=== PATIENT | female | born 1970 | race Caucasian/White ===

== ENCOUNTER 2018-03-30 08:38 | Emergency (ER) | payer OTHER ==
[2018-03-30 08:40] VITALS: BMI 32.1
[2018-03-30 08:42] VITALS: BP 128/80; PULSE 68; RESP 16; TEMP 98.2; O2SAT 98
--- NOTE | 2018-03-30 09:28 | ED PDOC ---
HPI: Female Pain Time Seen by Provider: 03/30/18 08:58 Chief Complaint (Nursing): Female Genitourinary Chief Complaint (Provider): Female Genitourinary History Per: Patient History/Exam Limitations: no limitations Onset/Duration Of Symptoms: Days (3) Current Symptoms Are (Timing): Still Present Additional Complaint(s): 47 years old female with history of anemia presents to the ED for evaluation of mild abdominal pain and vaginal bleeding associated with pain radiation down her left leg onset 3 days. Patient reports using 5 pads yesterday and she is on the second pad for today. She states it is not her period time. Patient reports trying to reach her OB[employer] SUPERVISOR, Dr. Sahil Tipton, but his office does not open until 12pm. She admits taking Advil with minimal relief. Patient reports having ablation of uterus before which made her period kiln hand. She denies any allergies. LMP: March 09, 2018 PMD:Willy Winkler Past Medical History Reviewed: Historical Data, Nursing Documentation, Vital Signs Vital Signs: Last Vital Signs Temp 98.2 F 03/30/18 08:40 Pulse 68 03/30/18 08:40 Resp 16 03/30/18 08:40 BP 128/80 03/30/18 08:40 Pulse Ox 98 03/30/18 08:40 - Medical History PMH: Anemia, Hypothyroidism - Surgical History Surgical History: (2) - Family History Family History: States: Unknown Family Hx - Social History Current smoker - smoking cessation education provided: No Alcohol: Social Drugs: Denies - Home Medications Home Medications: Ambulatory Orders Medication Instructions Recorded Naproxen [Naprosyn] 500 mg PO BID PRN #15 tablet 03/30/18 - Allergies Allergies/Adverse Reactions: Allergies Allergy/AdvReac Type Severity Reaction Status Date / Time No Known Allergies Allergy Verified 03/30/18 08:48 Review of Systems ROS Statement: Except As Marked, All Systems Reviewed And Found Negative Gastrointestinal: Positive for: Abdominal Pain (left lower quadrant) Genitourinary Female: Positive for: Vaginal Bleeding Physical Exam - Reviewed Nursing Documentation Reviewed: Yes Vital Signs Reviewed: Yes - Physical Exam Appears: Positive for: Non-toxic, No Acute Distress Skin: Positive for: Normal Color, Warm, Dry Gastrointestinal/Abdominal: Positive for: Tenderness (LLQ) Neurologic/Psych: Positive for: Alert, Oriented - Laboratory Results Result Diagrams: 03/30/18 09:32 03/30/18 09:32 - ECG O2 Sat by Pulse Oximetry: 98 (RA) Pulse Ox Interpretation: Normal Medical Decision Making Medical Decision Making: Time: 902 Initial Impression: irregular vaginal bleeding, LLQ pain Initial Plan: --Urine dipstick --Urine --Type and Screen --CMP --CBC --PTT --PT --Urinalysis --Pelvis/Transvaginal/Abdomen US 1141 Pelvis/Transvaginal/Abdomen US FINDINGS: UTERUS: Measures 11.5 x 6.0 x 5.7 cm. Anteverted an enlarged. There is heterogeneous myometrial echotexture. There is a 1.9 x 2.5 x 2.2 cm intramural posterior fundal fibroid in the midbody of the uterus. ENDOMETRIUM: Measures 6.0 mm in diameter. Unremarkable. CERVIX: No cervical abnormality identified. RIGHT OVARY: Measures 3.7 x 3.3 x 2.4 cm. No solid mass. Normal flow. There is a 1.6 x 0.9 x 1.7 cm simple cyst/ dominant follicle LEFT OVARY: Measures 2.7 x 2.4 x 1.5 cm. No solid mass. Normal flow. There is a 3.9 x 4.0 x 3.7 cm para ovarian cyst. FREE FLUID: No significant free fluid noted. OTHER FINDINGS: None. IMPRESSION: 1. Enlarged anteverted heterogeneous uterus with a dominant 1.9 x 2.5 x 2.2 cm posterior wall intramural fibroid in the midbody of the uterus. 2. 3.9 x 4.0 x 3.7 cm left para ovarian cyst. Follow-up in 3-6 month interval is recommended to assess stability/resolution of this cyst. No evidence for torsion. 11:[address] Sahil Tipton (private [employer]), nothing to do at this time , follow-up with him as outpatient. Copy of labs and imaging given to patient. 1207 Upon discharge, patient complained of left lower back pain that radiates to left leg. Exam: full ROM, no deformity. Will order Lumbar spine x-ray. ----- Scribe Attestation: Documented by Antionette Godoy, acting as a scribe for Lanny Erickson MD. Provider Scribe Attestation: All medical record entries made by the Scribe were at my direction and personally dictated by me. I have reviewed the chart and agree that the record accurately reflects my personal performance of the history, physical exam, medical decision making, and the department course for this patient. I have also personally directed, reviewed, and agree with the discharge instructions and disposition. Disposition - Clinical Impression Clinical Impression: Abnormal vaginal bleeding, Fibroid, Ovarian cyst, Low back pain - Disposition Referrals: Sahil Tipton MD [Non-Staff] - Disposition: Routine/Home Disposition Time: 11:54 Condition: STABLE Prescriptions: Naproxen [Naprosyn] 500 mg PO BID PRN #15 tablet PRN Reason: Pain, Moderate (4-7) Instructions: Ovarian Cysts, Low Back Pain in Adults, Uterine Fibroids, Dysfunctional Uterine Bleeding (ED) Forms: [employer] ([place])
[2018-03-30 09:44] LABS: BASO # 0.1 K/uL (0.0-0.2); EOS # 0.1 K/uL (0.0-0.7); EOS % 1.9 % (0.0-4.0); HEMOGLOBIN 12.4 g/dL (12.0-16.0); LYMPH # 1.6 K/uL (1.0-4.3); LYMPH % 29.9 % (20.0-40.0); MEAN CELL VOLUME 85.2 fl (81.0-99.0); MEAN PLATELET VOLUME 9.1 fl (7.2-11.7); MONO # 0.4 K/uL (0.0-0.8); NEUT # 3.2 K/uL (1.8-7.0); NEUT % 59.2 % (50.0-75.0); RBC 4.28 Mil/uL (3.80-5.20); RED CELL DISTRIBUTION WIDTH 13.9 % (11.5-14.5); WHITE BLOOD COUNT 5.4 K/uL (4.8-10.8)
[2018-03-30 09:50] LABS: ALB/GLOB RATIO 1.3 (1.0-2.1); ALBUMIN 4.3 g/dL (3.5-5.0); ALT/SGPT 24 U/L (9-52); AST/SGOT 25 U/L (14-36); BLOOD UREA NITROGEN 11 mg/dl (7-17); CALCIUM 9.1 mg/dL (8.4-10.2); GFR AFRICAN-AMERICAN > 60; GFR NON-AFRICAN AMERICAN > 60; SQUAMOUS EPITHIAL 6 /hpf (0-5); URINE BILIRUBIN NEGATIVE (NEGATIVE); URINE BLOOD LARGE (NEGATIVE); URINE CLARITY TURBID (Clear); URINE COLOR RED (YELLOW); URINE GLUCOSE (UA) NEG (Normal); URINE LEUKOCYTE ESTERASE NEG Leu/uL (Negative); URINE PROTEIN 100 mg/dL (NEGATIVE); URINE UROBILINOGEN 0.2-1.0 mg/dL (0.2-1.0)
[2018-03-30 09:58] LABS: PARTIAL THROMBOPLASTIN TIME 32.1 Seconds (25.6-37.1); PROTHROMBIN TIME 11.4 Seconds (9.8-13.1)
--- NOTE | 2018-03-30 11:42 | US ---
Date of service: 03/30/2018 HISTORY: LLQ pain, h/o ovarian cysts COMPARISON: 09/17/2012. TECHNIQUE: Transabdominal and transvaginal pelvic ultrasound was performed. FINDINGS: UTERUS: Measures 11.5 x 6.0 x 5.7 cm. Anteverted an enlarged. There is heterogeneous myometrial echotexture. There is a 1.9 x 2.5 x 2.2 cm intramural posterior fundal fibroid in the midbody of the uterus. ENDOMETRIUM: Measures 6.0 mm in diameter. Unremarkable. CERVIX: No cervical abnormality identified. RIGHT OVARY: Measures 3.7 x 3.3 x 2.4 cm. No solid mass. Normal flow. There is a 1.6 x 0.9 x 1.7 cm simple cyst/ dominant follicle LEFT OVARY: Measures 2.7 x 2.4 x 1.5 cm. No solid mass. Normal flow. There is a 3.9 x 4.0 x 3.7 cm para ovarian cyst. FREE FLUID: No significant free fluid noted. OTHER FINDINGS: None. IMPRESSION: 1. Enlarged anteverted heterogeneous uterus with a dominant 1.9 x 2.5 x 2.2 cm posterior wall intramural fibroid in the midbody of the uterus. 2. 3.9 x 4.0 x 3.7 cm left para ovarian cyst. Follow-up in 3-6 month interval is recommended to assess stability/resolution of this cyst. No evidence for torsion.
--- NOTE | 2018-03-30 13:41 | RAD ---
Date of service: 03/30/2018 PROCEDURE: Radiographs of the Lumbar Spine. HISTORY: L lower back pain COMPARISON: No prior. FINDINGS: BONES: There is mild levocurvature in the lumbar spine. There is normal alignment of the lumbar vertebral bodies. There is normal lumbar lordosis. There is no acute fracture, spondylolysis or spondylolisthesis. Bone mineralization is normal. DISC SPACES: There is mild multilevel degenerative disc disease with anterior spurring, reduced disc heights and multilevel facet arthropathy, worse at L5-S1 OTHER FINDINGS: There are no pathologic soft tissue calcifications. Both sacroiliac joints are normal. IMPRESSION: No acute fracture, spondylolysis or spondylolisthesis. Mild multilevel degenerative disc disease, worse at L5-S1.
== END 2018-03-30 14:17 | disposition home or self-care (01) ==
LOC: H.ER 08:38
DX: N93.8 Other specified abnormal uterine and vaginal bleeding (principal); D25.9 Leiomyoma of uterus, unspecified; N83.202 Unspecified ovarian cyst, left side; M54.5 Low back pain; D64.9 Anemia, unspecified; E03.9 Hypothyroidism, unspecified; M51.37 Other intervertebral disc degeneration, lumbosacral region